=== PATIENT | female | born 1995 | race Two or more races ===

== ENCOUNTER → 2021-06-12 | Outpatient (CLI) | payer OTHER, SELFPAY ==
--- NOTE | 2021-06-12 | IMM_PTH ---
PATIENT: RAIN SMILEY LOC: [facility] U#:[id number] AGE/SX: 26/F ROOM: RE06/12/[address]: Dr. Santiago Edge MD : 1995 BED: DIS: 06/12/2021 SPEC #: [id number] RECD: 06/14/21 11:04 STATUS: JOSE RERodrigo #: [id number] MILDRED: 06/12/21 00:[address]: Santiago Edge DEPT: IMMUNOHISTOCHEMISTRY RECD BY: Ansley Reese Tissues: A - Uterine cervix, NOS Procedures: p16 (initial) KI-67 (add) PHYSICIAN & INSTITUTION [place] [id number] SPECIMEN INFORMATION: Tissue Source: A ? Cervical, four quadrant biopsy Clinical Info: R87.612, R87.810 Specimen Number: [id number] CPT code: 20691, 65180 METHODOLOGY: Deparaffinized sections of prefer/formalin-fixed tissue or PAP/DQ stained slides are incubated with monoclonal/polyclonal antibodies/oligonucleotide probes. Localization is made via biotin free immunoperoxidase method. Appropriate controls are performed and reacted as expected. Results on target cell population are indicated in the following table: RESULTS: ANTIBODY / CLONE RESULT Block A P16 (E6H4) negative Ki-67 (30-9) negative These tests were developed and their performance characteristics determined by [facility]. They may not have been cleared or approved by the [place] Food and Drug Administration. The FDA has determined that such clearance or approval is not necessary. The above immunohistochemical/dualISH markers are ordered and reviewed by the Pathologist. INTERPRETATION: A. Cervical, four quadrant biopsy: Negative for dysplasia. DARNELL:selina 06/15/2021
--- NOTE | 2021-06-12 14:00 | CER_PTH ---
PATIENT: RAIN SMILEY LOC: [facility] U#:[id number] AGE/SX: 26/F ROOM: RE06/12/[address]: Dr. Santiago Edge MD : 1995 BED: DIS: 06/12/2021 SPEC #: [id number] RECD: 06/12/21 16:07 STATUS: JOSE SPENCER #: [id number] MILDRED: 06/12/21 14:[address]: Santiago Edge DEPT: SURGICAL PATHOLOGY RECD BY: Simi Elizalde Tissues: A - Uterine cervix, NOS B - Endocervical Procedures: Surgery Specimen Level IV HEADER OPERATION: Colposcopy PRE-OP DIAGNOSIS: R87.612, R87.810 TISSUE SUBMITTED: A ? Cervical biopsy four quad, B - ECC MICROSCOPIC DIAGNOSIS A. Cervix, four-quadrant biopsy: Fragments of squamous mucosa with minimal changes suspicious for HPV cytopathic effects. See comment. B. ECC: Fragments of benign ecto- and endocervical epithelium, blood and mucous, negative for dysplasia. DARNELL:selina 06/14/2021 COMMENT A. Results of immunohistochemistry ([id number]) for surrogate HPV marker (p16) will be reported separately. Transitional zone mucosa is not seen in the specimen. Clinical correlation and appropriate follow up are necessary. MICROSCOPIC DESCRIPTION Slides are reviewed. GROSS DESCRIPTION A - Received in fixative is one container labeled with the patient's name and designated cervical biopsy four quadrant. The specimen consists of multiple irregular fragments of light hernandez soft tissue that in aggregate measure 1.5 x 0.3 x 0.1 cm. The specimen is totally submitted in one cassette. B - Received in fixative is one container labeled with the patient's name and designated ECC. The specimen consists of multiple fragments of hemorrhagic mucoid tissue that in aggregate measure 2 x 2 x 0.1 cm. The specimen is totally submitted in one cassette. / DARNELL:selina 06/13/21 TC:5 CPT: 92267 x2
== END | disposition home or self-care (01) ==
LOC: LABSPEC 15:50
PROVIDERS: Visit Provider Obstetrics & Gynecology
DX: R87.612 Low grade squamous intraepithelial lesion on cytologic smear of cervix (LGSIL) (principal); R87.810 Cervical high risk human papillomavirus (HPV) DNA test positive
CPT/HCPCS: 88305; 88341; 88342

== ENCOUNTER → 2023-04-15 | Outpatient (CLI) | payer BC, SELFPAY ==
[2023-04-19 11:59] LABS: HPV Reflexed? NOT INDICATED
== END | disposition home or self-care (01) ==
LOC: LABSPEC 10:23
PROVIDERS: Visit Provider Nurse Practitioner Women's Health
DX: Z12.4 Encounter for screening for malignant neoplasm of cervix (principal)
CPT/HCPCS: 88175; G0145

== ENCOUNTER → 2025-02-17 | Outpatient (CLI) | payer OTHER, SELFPAY ==
--- OUTSIDE RECORDS SUMMARY | 2025-02-17 22:51 | XMS RPT_ITS | CCD ---
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 strength. No cranial nervedeficit or sensory deficit. She displays a negative Romberg sign.AANDOx3. 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 Patient is able toambulate in a straight line without difficulty.Skin: Skin is warm and dry. No rash noted. She is not diaphoretic. Noerythema. No pallor.Psychiatric: She has a normal mood and affect. Her behavior is normal.Nursing note and vitals reviewed.Diagnostic TestingED Labs Ordered and Reviewed - No data to displayProceduresMedical Decision Making / ED CourseCourse:Vital signs were reviewed.Triage records were reviewed.Medical records were reviewed.Nursing notes were reviewed and incorporated.The attending who evaluated and managed this patient was Dr. Toby Yarbrough Course Pt is afebrile and hemodynamically stable. Patient has a mozambican CTscore of 0At this time, the most likely Dx is head injury. I do not feel thatimaging is warranted at this time. The mozambican score is 0 and the patienthas no neurological deficits. She is given zofran in case she developsnausea and is given information for concussions.Pt discharged home d/t good condition, given Rx for zofranPt instructed to f/u with PCP this week and encouraged to return to ED ifsymptoms worsensuch as confusion, worsening headache, passing out, or ifnew symptoms develop.Patient vocalizes understanding and is agreeable to the plan.Encounter Diagnosis ICD-10-CM1. Injury of head, initial encounter S09.90XAPlanThe Patient was DISCHARGED: Counseled patient regarding suspecteddiagnosis AND need for follow-up. Discharged home with verbal and writteninstructions. They were instructed to return as needed for persistent orworsening symptoms or any new concerns.Condition at time of disposition: stableSIGNATURE: Diya Sepulveda PA (Pa)11/07/17 1204Rjose Sexton MD11/07/17 1443 Normal [facility] Vital Signs Date Time Vital Sign Value Performing Clinician Hina jakub 02-17-2025 07:08-0400 Body height 172.72 cm Shanti Morris CN Work Phone: [facility] 02-17-2025 07:08-0400 Body mass index (BMI) [Ratio] 28.1 kg/m2 Shanti LEVINM Work Phone: [facility] 02-17-2025 07:08-0400 Body weight 83.91 kg Shanti Morris CNM Work Phone: [facility] 02-17-2025 07:08-0400 Diastolic blood pressure 77 mm[Hg] Shanti Morris CNM Work Phone: [facility] 02-17-2025 07:08-0400 Systolic blood pressure 110 mm[Hg] Shanti LEVINM Work Phone: [facility] 10-24-2022 18:51-0500 Body temperature 98.4 [degF] Jared Norman MD Work Phone: [facility] 10-24-2022 18:51-0500 Diastolic blood pressure 82 mm[Hg] Jared Norman MD Work Phone: [facility] 10-24-2022 18:51-0500 Heart rate 78 /min Jared Norman MD Work Phone: [facility] 10-24-2022 18:51-0500 Respiratory rate 16 /min Jared Norman MD Work Phone: [facility] 10-24-2022 18:51-0500 Systolic blood pressure 119 mm[Hg] Jared Norman MD Work Phone: [facility] 04-16-2022 10:47-0400 Body temperature 97 [degF] Eli Escamilla PA-C Work Phone: [facility] 04-16-2022 10:47-0400 Body weight 74.03 kg Eli Athy PA-C Work Phone: [facility] 04-16-2022 10:47-0400 Diastolic blood pressure 76 mm[Hg] Eli Athy PA-C Work Phone: [facility] 04-16-2022 10:47-0400 Heart rate 61 /min Eli Athy PA-C Work Phone: [facility] 04-16-2022 10:47-0400 Respiratory rate 21 /min Eli Athy PA-C Work Phone: [facility] 04-16-2022 10:47-0400 SaO2% (BldA) [Mass fraction] 100 % Eli Athy PA-C Work Phone: [facility] 04-16-2022 10:47-0400 Systolic blood pressure 112 mm[Hg] Eli Athy PA-C Work Phone: [facility] Encounters Encounter Date Encounter Type Care Provider Facility Start: 02-17-2025 End: 02-17-2025 ambulatory Shanti Morris CNM Work Phone: [facility] Work Phone: Start: 02-17-2025 End: 02-17-2025 Patient encounter procedure Shanti Morris CNM -[facility] Start: 02-17-2025 End: 02-17-2025 Patient encounter status Shanti Morris CNM [facility] Start: 04-15-2023 End: 04-15-2023 ambulatory Suha Yung Facility:[facility] Start: 12-01-2022 End: 12-01-2022 Emergency department patient visit [facility] Start: 10-24-2022 ambulatory [facility]ELF SELF [facility] ([place] Start: 10-24-2022 End: 10-24-2022 Office outpatient visit 10 minutes Jared Norman MD Work Phone: [facility] [place] Comment on above: Sore throat (Primary Dx); Acute upper respiratory infection Start: 04-20-2022 Telephone encounter Berny mabry POWER CUTTING MACHINE OPERATOR.LESSON INSTRUCTOR Work Phone: [facility] Comment on above: Results Start: 04-16-2022 End: 04-16-2022 Patient encounter procedure Eli Delma Escamilla PA-C Work Phone: [facility] Comment on above: Suspected 2019 novel coronavirus infection (Primary Dx) Start: 11-07-2017 End: 11-07-2017 Emergency department patient visit TOBY SEXTON Facility:[facility] Procedures Date Procedure Procedure Detail Performing Clinician Start: 10-24-2022 Iaadiadoo streptococ cus group a Jared Norman MD Work Phone: Plan of Treatment Date Care Activity Detail Author Start: 03-08-2025 Tetanus vaccination [facility] Start: 05-03-2022 Influenza vaccination C [facility] Start: 04-16-2022 End: 04-30-2022 SARS-CoV-2 (COVID-19) RNA [Presence] in Respiratory specimen by RYAN with probe detection 2019 CORONAVIRUS Microbiology Routine Suspected 2019 novel coronavirus infection Expected: 04/16/2022, Expires: 04/30/2022 [facility] Work Phone: Comment on above: Expected: 04/16/2022 , Expires: 04/30/2022 Start: 02-21-2017 PAP TESTING PAP TESTING [facility] Start: 02-21-2017 Screening for malign ant neoplasm of cervix CERVICAL CANCER SCREENING DISCUSSION [facility] Start: 02-21-2015 Urine microalbumin profile DTAP,TDAP,TD (1 - Tdap) [facility] Start: 02-21-2014 HEPATITIS C SCREENING HEPATITIS C SC REENING [facility] Start: 02-21-2014 HIV SCREENING HIV SCREENING [facility] Start: 2012 Screening for Chlamy mayte trachomatis CHLAMYDIA SCREEN [facility] Start: 02-21-2011 HIV screening HIV SCREENING DISCUSSION [facility] Start: 02-21-2010 PEDS TO ADULT TRANSI TION ANNUAL ASSESSMENT PEDS TO ADULT TRANSITION ANNUAL ASSESSMENT [facility] Start: 2008 Adult depression screening assessment DEPRESSION SCREENING [facility] Start: 2008 PEDS TO ADULT TRANSI TION INITIAL DISCUSSION PEDS TO ADULT TRANSITION INITIAL DISCUSSION [facility] Start: 02-21-2007 HPV VACCINE (1 - 2-d ose series) HPV VACCINE (1 - 2-dose series) [facility] Start: 02-21-2007 Vaccination for varsha n papillomavirus HPV VACCINE ADOL (1 - 2-dose series) [facility] Start: 1996 COVID-19 VACCINE (#1) COVID-19 VACCI NE (#1) [facility] Start: 1996 HEPATITIS B (1 of 3 - 3-dose series) HEPATITIS B (1 of 3 - 3-dose series) [facility] Start: 1996 Hepatitis C screening HEPATITI S C VIRUS SCREENING [facility] Start: 1996 Screening for Chlamy mayte trachomatis GONORRHEA SCREEN [facility] Liquid based cervica l cytology screening [facility] Immunizations Immunization Date Immunization Notes Care Provider Fa [facility] 06-20-2020 influenza virus vacc ine, unspecified formulation Jared Norman MD Work Phone: [facility] Payers Date Payer Category Payer Self-pay 2023 Unknown [id number] 2022 Unknown [id number] 2017 Unknown 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) [facility] Start: 1995 Sex Assigned At Not on file [facility] Start: 04-06-2022 End: 04-16-2022 Exposure to SARS-CoV-2 (event) Yes [facility] Start: 1995 Sex Assigned At Female [facility] Start: 02-17-2025 Tobacco smoking stat us NHIS Ex-smoker (finding) [facility] Gender Identity Identifies as fe male gender (finding) [facility] Sexual Orientation Heterosexual (finding) [facility] Clinical Notes 05-29-2021 to 02-17-2025 Jared Norman MD - 10/24/2022 6:45 PM ESTLuz Ugarte RN - 10/24/2022 6:45 PM ESTPatient InstructionsAttachmentsTelephone Encounter - Camille Viera - 04/20/2022 10:19 AM EDT Note Date & Type Note Facility 02-17-2025 Progress note [facility] 10-24-2022 History of Presen t illness Narrative History of Present Illness Patient presents with sore throat and cough for 4 days. Had a fever. No other symptoms. Review of Systems All other systems reviewed and are negative. Vitals: Blood pressure 119/82, pulse 78, temperature 98.4 F (36.9 C), temperature source Temporal, resp. rate 16. Physical Exam Constitutional: Appearance: Normal appearance. HENT: Head: Normocephalic and atraumatic. Right Ear: Tympanic membrane, ear canal and external ear normal. Left Ear: Tympanic membrane, ear canal and external ear normal. Mouth/Throat: Pharynx: Posterior oropharyngeal erythema present. No pharyngeal swelling. Cardiovascular: Rate and Rhythm: Normal rate and regular rhythm. Heart sounds: Normal heart sounds. Pulmonary: Effort: Pulmonary effort is normal. Breath sounds: Normal breath sounds. Neurological: Mental Status: She is alert. Neurological Exam Mental Status Alert. Assessment and Plan ICD-10-CM 1. Sore throat J02.9 RAPID STREP A ANTIGEN 2. Acute upper respiratory infection J06.9 1917 Patient provided with discharge instructions, patient education and follow up information. Patient verbalizes understanding and states has no questions at this time. Copy of the After Visit Summary and work note given to the patient. LUZ documented in this encounter [facility] 10-24-2022 Instructions Luz Ugarte RN - 10/24/2022 6:45 PM EST You may receive a survey following your visit today. We appreciate any feedback you have so that we can provide the best care possible. This may be in the form of an email or telephone call. Follow up with your family doctor or to ER if symptoms worsen or change. Tylenol/Motrin as needed for pain/fever/discomfort. The following attachments cannot be sent through Care Everywhere.URI (Upper Respiratory Infection): Viral ([place])documented in this encounter [facility] 04-20-2022 Miscellaneous Notes Patient given results and verbalized understanding of instructions given. Camille Viera Patient did not view my chart message. Please reach out and review below. You tested negative for COVID. If you were tested because you were having symptoms, please monitor these symptoms and for any worrisome symptoms, please call your primary care provider or schedule a visit with [facility]. documented in this encounter [facility] 04-16-2022 Note HNO ID: [id number] Author: Eli Escamilla PA-C Service: ? Author Type: Physician Regional Environmental Manager Type: Progress Notes Filed: 04/16/2022 1:02 PM Note Text: This note was created using Connectureriter. Subjective Daniella Mtz is a 27 year old female. HPI Patient presents with a chief complaint of needing a COVID test. She has sore throat, body aches, headache over the past 2 days. [place] is [place] and there have been a lot of people there with COVID. She had a negative at home COVID test today. Denies significant cough. No chest pain or shortness of breath. No abdominal pain or vomiting. Her left ear is bothering her as well. Review of Systems Constitutional: Positive for fatigue. HENT: Positive for postnasal drip and sore throat. Respiratory: Negative. Cardiovascular: Negative. Gastrointestinal: Negative. Genitourinary: Negative. Musculoskeletal: Positive for myalgias. Skin: Negative. Neurological: Positive for headaches. All other systems reviewed and are negative. No past medical history on file. Current Outpatient Medications Medication Sig Dispense Refill spironolactone (ALDACTONE) 50 mg tablet Take 1 tablet by mouth once daily. (Patient not taking: Reported on 04/16/2022) spironolactone-hctz 50/50 (ALDACTAZIDE) 50-50 mg per tablet 1 tab(s) (Patient not taking: Reported on 05/29/2021) pramoxine-hydrocortisone (PROCTOFOAM HC) rectal foam 1 Applicator by RECTAL route three times daily. (Patient not taking: Reported on 01/03/2021 ) 10 g 0 No current facility-administered medications for this visit. No past surgical history on file. No family history on file. Social History Tobacco Use Smoking status: Never Smokeless tobacco: Never Substance Use Topics Alcohol use: No Drug use: No Objective BP 112/76 Pulse 61 Temp 36.1 ?C (97 ?F) Resp 21 Wt 74 kg (163 lb 3.2 oz) LMP 03/26/2020 (Exact Date) SpO2 100% BMI 24.81 kg/m? Physical Exam Vitals reviewed. Constitutional: Appearance: Normal appearance. HENT: Head: Normocephalic and atraumatic. Right Ear: Tympanic membrane, ear canal and external ear normal. Left Ear: Tympanic membrane, ear canal and external ear normal. Nose: Nose normal. Mouth/Throat: Mouth: Mucous membranes are moist. Pharynx: Oropharynx is clear. No oropharyngeal exudate or posterior oropharyngeal erythema. Cardiovascular: Rate and Rhythm: Normal rate and regular rhythm. Heart sounds: Normal heart sounds. Pulmonary: Effort: Pulmonary effort is normal. Breath sounds: Normal breath sounds. Musculoskeletal: Cervical back: Neck supple. Skin: General: Skin is warm and dry. Neurological: General: No focal deficit present. Mental Status: She is alert and oriented to person, place, and time. Assessment and Plan ASSESSMENT/PLAN: 1. Suspected 2019 novel coronavirus infection - ICD9: V01.79, ICD10: Z20.822 COVID testing pending. Discussed quarantine and red flag symptoms. Discussed supportive care. Patient agreeable with plan. - 2019 CORONAVIRUS Eli Escamilla PA-C [facility] 04-16-2022 History of Presen t illness Narrative This note was created using Connectureriter. Subjective Daniella Mtz is a 27 year old female. HPI Patient presents with a chief complaint of needing a COVID test. She has sore throat, body aches, headache over the past 2 days. She is in the [place] and there have been a lot of people there with COVID. She had a negative at home COVID test today. Denies significant cough. No chest pain or shortness of breath. No abdominal pain or vomiting. Her left ear is bothering her as well. Review of Systems Constitutional: Positive for fatigue. HENT: Positive for postnasal drip and sore throat. Respiratory: Negative. Cardiovascular: Negative. Gastrointestinal: Negative. Genitourinary: Negative. Musculoskeletal: Positive for myalgias. Skin: Negative. Neurological: Positive for headaches. All other systems reviewed and are negative. No past medical history on file. Current Outpatient Medications Medication Sig Dispense Refill spironolactone (ALDACTONE) 50 mg tablet Take 1 tablet by mouth once daily. (Patient not taking: Reported on 04/16/2022) spironolactone-hctz 50/50 (ALDACTAZIDE) 50-50 mg per tablet 1 tab(s) (Patient not taking: Reported on 05/29/2021) pramoxine-hydrocortisone (PROCTOFOAM HC) rectal foam 1 Applicator by RECTAL route three times daily. (Patient not taking: Reported on 01/03/2021 ) 10 g 0 No current facility-administered medications for this visit. No past surgical history on file. No family history on file. Social History Tobacco Use Smoking status: Never Smokeless tobacco: Never Substance Use Topics Alcohol use: No Drug use: No Objective BP 112/76 Pulse 61 Temp 36.1 C (97 F) Resp 21 Wt 74 kg (163 lb 3.2 oz) LMP 03/26/2020 (Exact Date) SpO2 100% BMI 24.81 kg/m Physical Exam Vitals reviewed. Constitutional: Appearance: Normal appearance. HENT: Head: Normocephalic and atraumatic. Right Ear: Tympanic membrane, ear canal and external ear normal. Left Ear: Tympanic membrane, ear canal and external ear normal. Nose: Nose normal. Mouth/Throat: Mouth: Mucous membranes are moist. Pharynx: Oropharynx is clear. No oropharyngeal exudate or posterior oropharyngeal erythema. Cardiovascular: Rate and Rhythm: Normal rate and regular rhythm. Heart sounds: Normal heart sounds. Pulmonary: Effort: Pulmonary effort is normal. Breath sounds: Normal breath sounds. Musculoskeletal: Cervical back: Neck supple. Skin: General: Skin is warm and dry. Neurological: General: No focal deficit present. Mental Status: She is alert and oriented to person, place, and time. Assessment and Plan ASSESSMENT/PLAN: 1. Suspected 2019 novel coronavirus infection - ICD9: V01.79, ICD10: Z20.822 COVID testing pending. Discussed quarantine and red flag symptoms. Discussed supportive care. Patient agreeable with plan. - 2019 CORONAVIRUS Eli Escamilla PA-C documented in this encounter [facility] 05-29-2021 Note HNO ID: [id number] Author: Nhan Allen APRN.LESSON INSTRUCTOR Service: ? Author Type: Nurse Practitioner Type: Progress Notes Filed: 05/29/2021 7:49 PM Note Text: Subjective HPI HPI Daniella Mtz is a 26 year old female who presents today for CC of cough, fever, st, congestion, body aches, loss taste. This started 1 day ago. Has tried otc medication for relief. Symptoms are worsened by nothing. Risk factors recent sick exposures. Denies cp/sob, diarrhea, ear pain. .Patient presents with: Cough: with intermittent fever, sore throat, congestion AND bodyaches x 1 day No past medical history on file. No past surgical history on file. ALLERGIES Amoxicillin MEDICATIONS spironolactone (ALDACTONE) 50 mg tablet Take 1 tablet by mouth once daily. spironolactone-hctz 50/50 (ALDACTAZIDE) 50-50 mg per tablet 1 tab(s) pramoxine-hydrocortisone (PROCTOFOAM HC) rectal foam 1 Applicator by RECTAL route three times daily. No family history on file. Social History Tobacco Use - Smoking status: Never Smoker - Smokeless tobacco: Never Used Substance Use Topics - Alcohol use: No - Drug use: No ROS Objective Blood pressure 120/86, pulse 88, temperature 37.2 ?C (98.9 ?F), temperature source Left Tympanic, resp. rate 16, weight 78.8 kg (173 lb 12.8 oz), last menstrual period 03/26/2020, SpO2 99 %. Physical Exam Constitutional: General: She is not in acute distress. Appearance: She is not toxic-appearing or diaphoretic. HENT: Head: Normocephalic and atraumatic. Right Ear: Hearing and external ear normal. Left Ear: Hearing and external ear normal. Nose: Nose normal. Mouth/Throat: Pharynx: Uvula midline. No pharyngeal swelling, oropharyngeal exudate, posterior oropharyngeal erythema or uvula swelling. Eyes: General: Lids are normal. No scleral icterus. Right eye: No discharge. Left eye: No discharge. Conjunctiva/sclera: Conjunctivae normal. Pupils: Pupils are equal, round, and reactive to light. Neck: Trachea: Trachea normal. Cardiovascular: Rate and Rhythm: Normal rate and regular rhythm. Heart sounds: Normal heart sounds. Pulmonary: Effort: Pulmonary effort is normal. Breath sounds: Normal breath sounds. Musculoskeletal: Cervical back: Normal range of motion and neck supple. Lymphadenopathy: Cervical: No cervical adenopathy. Right cervical: No superficial cervical adenopathy. Left cervical: No superficial cervical adenopathy. Skin: Findings: No rash. Neurological: Mental Status: She is alert and oriented to person, place, and time. ASSESSMENT/PLAN: 1. URI, acute - ICD9: 465.9, ICD10: J06.9 - Discussed viral etiology and rationale for treatment. - Symptomatic treatment with prn analgesia - Supportive care with fluids and rest - Follow up in 3-5 days if symptoms persist or sooner if worsening of symptoms Discussed quarantine, social distancing otc medications discussed Push fluids -If you experience chest pain/shortness of breath go to ER - 2019 CORONAVIRUS Agrees to plan Nhan Allen APRN.LESSON INSTRUCTOR [facility] Evaluation note Diagnosis Suspected 2019 novel coronavirus infection- Primary [facility] Sore throat- Primary Acute pharyngitis Acute upper respiratory infection Acute upper respiratory infections of unspecified site [facility] Diagnosis Onset Date Resolution Status Admit Date Encounter for routine gynecological examination noneactive January [id number] 6:52am [facility] Work Phone: Progress note Author Shanti Morris [facility] Note Date/Time February 17, 2025 7:32 am [facility] [address], [address] [place] [address] OFFICE VISIT Date of Service: 02/17/25 MR#: [id number] Acct: [id number] Name: DANIELLA MTZ Rep #: [id number] : 1995 Provider: MAGDALENE Morris Age/Sex: 29/F Location: [facility] Status: Signed Intake Vital Signs 02/17/25 07:08 Height 5 ft 8 in Weight: 185 lb BMI 28.1 BP 110/77 Intake Visit 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 Required: No Is patient in pain?: No Allergies amoxicillin Adverse Reaction (Intermediate, Verified 02/17/25 07:10) Hives Medications ?Medication ?Instructions ?Recorded ?Confirmed ?Type NK 02/17/25 02/17/25 History Is last menstrual period known: Yes Last Menstrual Period: 01/22/25 Post menopausal: No Patient : No : No Do you think of yourself as: straight/heterosexual Current gender identity: female Control Method: none PFSH Medical History (Updated 02/17/25 @ 07:12 by Sandrita Schwartz) Hives Family History (Updated 02/17/25 @ 07:20 by Sandrita Schwartz) Grandmother Cancer Mother Hypertension Sister PCOS (polycystic ovarian syndrome) Social History adopted: No household members: other details: 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 housing: house number of children: 0 current occupational status: employed current occupation: [employer] pets and animals: Yes pets and animals: dog(s) history of recent travel: Yes ([place]) out of state: Yes out of country: No sexually active: Yes Smoking Status: Former smoker second hand exposure: No alcohol intake: current alcohol intake frequency: a few times a month Alcohol type: wine substance use type: does not use well-balanced diet: rarely or never caffeine: Yes Type: other Number of servings: 1 eating out: 4 or more times/week during the past year weight has: remained stable what type of physical activity do you participate in: none sandra/christianity: Gnosticism seatbelt use: always do you feel safe at home: Yes additional social history: Emily Davis HPI Encounter for routine gynecological examination Details: DANIELLA MTZ is a 29 year old who presents for new annual exam. Previously saw Stuart and had normal pap in 2022. Not on OCP- getting in JUN and ok with within next year. Last PAP: 2022 History of abnormal PAP: 2019 Last mammogram: NA History of abnormal mammogram: [] Colon cancer screening: NA Other preventative health care screenings: PCP Female Reproductive History Last Menstrual Period: 01/22/25 Cycle Length: 21-35 Bleeding Duration: 5 Questions: metorrhagia: No, sexually active: Yes, dyspareunia: No and PCB: No ROS Const Constitutional: Reports system reviewed and no additional complaints, except as documented Cardio Card: Reports system reviewed and no additional complaints, except as documented Resp Resp: Reports system reviewed and no additional complaints, except as documented GI GI: Reports system reviewed and no additional complaints, except as documented : Reports system reviewed and no additional complaints, except as documented; Denies difficulty voiding, dysuria or urinary frequency Skin Skin/Breast: Reports system reviewed and no additional complaints, except as documented Neuro Neuro: Reports system reviewed and no additional complaints, except as documented Psych Psych: Reports system reviewed and no additional complaints, except as documented; Denies anhedonia, anxiety or depression Exam Const General: cooperative, healthy appearing, comfortable and no acute distress Orientation: alert, awake and oriented x3 Neck Neck: normal visual inspection and full ROM Thyroid: thyroid normal Chest Breast inspection: normal inspection of the breasts and normal inspection of the axillae Breast palpation: normal palpation of the breasts and normal palpation of the axillae Resp Effort & Inspection: normal respiratory effort, able to speak in complete sentences and symmetric chest movement GI Inspection: normal to inspection Palpation: soft Rectal Exam: visual inspection normal External Female Exam: normal external appearance and normal appearance of the urethra Urethra: normal appearance of the urethra Speculum Exam - Vagina: normal appearance of the vagina and normal vaginal discharge Speculum Exam - Cervix: normal appearance of the cervix and nontender Bimanual Exam- Vagina & Uterus: normal bimanual exam, normal palpation, uterine size normal, No tender and non-tender Bimanual Exam- Adnexa, other: normal Pelvic Support: normal Skin General: no rashes or lesions noted Neuro General: patient alert, patient awake and patient oriented x3 Cognition: normal cognition Speech: speech normal Gait: normal gait Extrem General: normal to inspection and full ROM Psych Appearance: grossly normal and well kempt Mental Status: mental status grossly normal Affect: normal affect Speech and Movement: speech and movement normal Attitude: cooperative Thought Process: normal Thought Content: normal Judgment: judgment good Coding Level of Care Code Off vis,new,prev 18-39yrs Diagnoses Encounter for routine gynecological examination Z01.419 Assessment and Plan Assessment and Plan (1) Encounter for routine gynecological examination: Orders: Orders PAP IG HPV APTIMA 16/18,45 Today Plan Details Additional Comments: Cervical cancer screening: today Breast cancer screening: age 40 STD prevention and contraceptive options including their risks, benefits, and alternatives were reviewed with the patient and she chooses: denies Encouraged maintenance of a healthy weight and active lifestyle and handout given. Calcium/vitamin D recommendations provided. Annual exam handout including recommendations for good health guidelines and basic screening information given. Problem list up to date, see problem list details for any additional plan information. follow up in one year for annual health maintenance exam or sooner if needed. 02/17/25 0732 <Electronically signed by Shanti rizo CNM> Date _ Shanti Morris CNM Cosigner Signature: Date (if applicable) CC: ~ [facility] Work Phone: Reason for referral (narrative)No reason for referral information availableBlMadera Community Hospital Work Phone: Summary Purpose Family History Relationship Condition Age at Onset Recorded Date/T raghu grandmother Malignant neoplasm Unknown mother Hypertension Unknown sister Polycystic ovary syndrome Unknown Advance Directives No Advanced Directives Records FoundNo Advanced Directives Records FoundNo Advanced Directives Records FoundNo Advanced Directives Records FoundNo Advanced Directives Records FoundNo Advanced Directives Records Found Health Concerns Infection Onset Date Last Indicated Resolved Time COVID-19 Rule-Out 04/16/2022 04/16/2022 Chief Complaint and Reason for Visit Chief Complaint Admit Date Annual (QUILL [facility]AYER) February 17, 2025 6:52 am Reason for Visit Admit Date Encounter for routine gynecological exam ination February 17, 2025 6:52am Additional Source Comments INFORMATION SOURCE (unrecogn ized section and content) DATE CREATED AUTHOR 02/21/2018 [facility] DATE CREATED AUTHOR AUTHOR'S ORGANIZ ATION 02/21/2018 [facility] DATE CREATED AUTHOR AUTHOR'S ORGANIZ ATION 04/26/2022 [facility] DATE CREATED AUTHOR AUTHOR'S ORGANIZ ATION 10/25/2022 [facility] DATE CREATED AUTHOR AUTHOR'S ORGANIZ ATION 04/19/2023 [facility] DATE CREATED AUTHOR AUTHOR'S ORGANIZ ATION 02/09/2024 [facility] Source Comments (unrecognize d section and content) In the event this informatio n is protected by the Federal Confidentiality of Alcohol and Drug Abuse Patient Records regulations: The Federal rules restrict any use of the information to criminally investigate or prosecute any alcohol or drug abuse patient.[facility] the event this information is protected by the Federal Confidentiality of Alcohol and Drug Abuse Patient Records regulations: The Federal rules restrict any use of the information to criminally investigate or prosecute any alcohol or drug abuse patient.[facility] Reason for Visit (unrecogniz ed section and content) Reason Comments Sore Throat HARVEY, dizziness x 2 da ys, wants a covid test Reason Comments Results Reason Comments Sore Throat White spots in throa t, sore throat x 2 days, Fever earlier. Care Teams (unrecognized sec tion and content) Team Status: Inactive Member Role Status Dates Shanti Morris CNM Attending Provider Active S tart: February 17, 2025 End: February 17, 2025 Goals (unrecognized section and content) Goals may be documented in a n alternate section FOR RECORDS PERTAINING TO PATIENTS WHO ARE OR HAVE BEEN ENROLLED IN A CHEMICAL DEPENDENCY/SUBSTANCEABUSE PROGRAM, SOME INFORMATION MAY BE OMITTED. This clinical summary was aggregated from multiple sources. Caution should be exercised in using it in the provision of clinical care. This summary normalizes information from multiple sources, and as a consequence, information in this document may materially change the coding, format and clinical context of patient data. In addition, data may be omitted in some cases. CLINICAL DECISIONS SHOULD BE BASED ON THE PRIMARY CLINICAL RECORDS. [facility]. provides no warranty or guarantee of the accuracy or completeness of information in this document.
[2025-02-22 11:08] LABS: HPV APTIMA, High Risk Negative (Negative)
== END | disposition home or self-care (01) ==
LOC: LABSPEC 17:57
PROVIDERS: Visit Provider Advanced Practice Midwife
DX: Z12.4 Encounter for screening for malignant neoplasm of cervix (principal)
CPT/HCPCS: 87624; 88175; G0145